=== PATIENT | male | born 2000 | race Two or more races ===

== ENCOUNTER 2019-12-17 20:58 | Emergency (ER) | payer OTHER ==
[~2019-12-17] VITALS: Ht 170.2 cm; Wt 65.9 kg
[2019-12-17] MEDS ORDERED: ISOVUE-370 76% 100ML VIAL As Ordered ONE (21:41)
[2019-12-17 22:01] LABS: BASO # 0.1 10^3/uL (0.0-0.2); BASO % 1.1 % (0.0-1.0); EOS # 0.1 10^3/uL (0.0-0.5); EOS % 1.9 % (0.0-3.0); HEMATOCRIT 47.9 % (42.0-52.0); LYMPH # 2.1 10^3/uL (1.5-5.0); LYMPH % 28.4 % (24.0-44.0); MEAN CORPUSCULAR HEMOGLOBIN 31.9 pg (27.0-33.0); MEAN CORPUSCULAR HGB CONC 33.4 g/dl (32.0-36.5); MEAN CORPUSCULAR VOLUME 95.6 fl (80.0-96.0); MONO # 0.7 10^3/uL (0.0-0.8); MONO % 8.8 % (0.0-5.0); NEUTROPHILS # 4.5 10^3/uL (1.5-8.5); NEUTROPHILS % 59.4 % (36.0-66.0); PLATELET COUNT, AUTOMATED 201 10^3/uL (150-450); RED BLOOD COUNT 5.01 10^6/uL (4.30-6.10); WHITE BLOOD COUNT 7.5 10^3/uL (4.0-10.0)
[2019-12-17 22:14] LABS: ALBUMIN 4.5 GM/DL (3.2-5.2); BILIRUBIN,DIRECT 0.1 MG/DL (0.0-0.2); BILIRUBIN,TOTAL 0.4 MG/DL (0.2-1.0); TOTAL PROTEIN 8.2 GM/DL (6.4-8.2)
--- NOTE | 2019-12-17 22:26 | REPVR ---
PROCEDURE INFORMATION: Exam: CT Abdomen And Pelvis With Contrast Exam date and time: 12/17/2019 9:43 PM Age: 19 years old Clinical indication: Abdominal pain; Localized; Right lower quadrant (rlq); Additional info: R/O infectious process TECHNIQUE: Imaging protocol: Computed tomography of the abdomen and pelvis with intravenous contrast. Radiation optimization: All CT scans at this facility use at least one of these dose optimization techniques: automated exposure control; mA and/or kV adjustment per patient size (includes targeted exams where dose is matched to clinical indication); or iterative reconstruction. Contrast material: ISOVUE 370; Contrast volume: 100 ml; Contrast route: INTRAVENOUS (IV); COMPARISON: No relevant prior studies available. FINDINGS: Lungs: The imaged portions of the lung bases are clear. The lungs were not fully imaged. Heart: No cardiomegaly or pericardial effusion. Diaphragm: Intact. Liver: Unremarkable. No liver lesion is identified. The contour of the liver is smooth. No hepatomegaly is noted. Gallbladder and bile ducts: No calcified gallstones are noted. No gallbladder wall thickening, pericholecystic fluid, or pericholecystic inflammatory changes are identified. No dilation of the bile ducts is noted. No calcified stones are seen in the common bile duct. Pancreas: Normal. No dilation of the main pancreatic duct is noted. There is no inflammatory fat stranding around the pancreas to suggest acute pancreatitis. Spleen: Normal. No splenomegaly is noted. Adrenals: Normal. No adrenal mass is noted. Kidneys and ureters: The kidneys are normal in appearance. No renal lesion is noted. No stones are noted in the kidneys or ureters. There is no hydronephrosis or hydroureter. There are no wedge-shaped areas of low attenuation in the kidneys to suggest pyelonephritis. There is no renal abscess or perinephric fluid collection. Stomach and bowel: The stomach and small bowel are unremarkable. There is no evidence for a bowel obstruction, diverticulosis, diverticulitis, colitis, perforated viscus, pneumatosis intestinalis, intussusception, or volvulus. Appendix: Normal. There is no evidence for appendicitis. Intraperitoneal space: No free air. No ascites. No asbcess. Retroperitoneal space: No fluid collection. No mass. Vasculature: The abdominal aorta is patent, normal in caliber, and there is no dissection. The iliac arteries, common femoral arteries, renal arteries, celiac artery, superior mesenteric artery, and inferior mesenteric artery are patent. The portal veins, splenic vein, superior mesenteric vein, inferior mesenteric vein, and renal veins are patent. Lymph nodes: No enlarged lymph nodes. Bladder: The distended urinary bladder is normal in appearance. No stones or masses are seen in the bladder. Reproductive: The prostate gland and seminal vesicles are unremarkable. Bones/joints: There is no fracture or dislocation. No suspicious osteolytic or osteoblastic lesion. There are no bony destructive changes. Soft tissues: Unremarkable. No hernia. No soft tissue fluid collection. IMPRESSION: No acute findings in the abdomen or pelvis. Normal appendix. Electronically signed by: Conor Aviles On 12/17/2019 22:25:37 PM
[2019-12-17] MEDS ORDERED: KETOROLAC 30 MG/ML 1ML VIAL IV ONE (22:45)
[2019-12-17 23:04] VITALS: BP 120/71
== END 2019-12-17 23:06 | disposition home or self-care (01) ==
LOC: M ED 20:58
DX: R10.9 Unspecified abdominal pain (principal)
CPT/HCPCS: 74177; 80047; 80076; 81001; 83690; 85025; 96374; 99284; J1885; Q9967

== ENCOUNTER 2021-02-28 15:38 | Emergency (ER) | payer OTHER ==
[~2021-02-28] VITALS: Ht 170.2 cm; Wt 68.6 kg
[2021-02-28 16:43] LABS: BASO # 0.1 10^3/uL (0.0-0.2); BASO % 0.9 % (0.0-1.0); EOS # 0.1 10^3/uL (0.0-0.5); EOS % 0.9 % (0.0-3.0); HEMATOCRIT 46.5 % (42.0-52.0); HEMOGLOBIN 15.8 g/dl (13.5-17.5); LYMPH # 3.1 10^3/uL (1.5-5.0); LYMPH % 32.1 % (24.0-44.0); MEAN CORPUSCULAR HEMOGLOBIN 31.6 pg (27.0-33.0); MONO # 0.7 10^3/uL (0.0-0.8); MONO % 7.1 % (2.0-8.0); NEUTROPHILS # 5.7 10^3/uL (1.5-8.5); NEUTROPHILS % 58.7 % (36.0-66.0); PLATELET COUNT, AUTOMATED 234 10^3/uL (150-450); WHITE BLOOD COUNT 9.7 10^3/uL (4.0-10.0)
--- NOTE | 2021-02-28 16:57 | REP ---
INDICATION: right flank pain. COMPARISON: 12/17/2019 TECHNIQUE: 3 mm axial images were obtained through the abdomen and pelvis without contrast. Sagittal and coronal reconstructions were obtained from the original data set. FINDINGS: No significant abnormality is identified at the lung bases. The liver, spleen and pancreas appear normal. No stones seen in the gallbladder and there is no thickening of the gallbladder wall. The adrenal glands appear normal bilaterally. No stones, masses or hydronephrosis seen in either kidney. No stones are noted in the minimally filled urinary bladder. A moderate amount of fecal debris is seen in the right colon with the remainder of the colon having only a small amount of fecal debris. Scattered uncomplicated diverticula are present in the sigmoid with no evidence of diverticulitis. There also is no evidence of appendicitis. No osseous abnormality is identified. IMPRESSION: Unremarkable examination. <Electronically signed by Alvaro Baets > 02/28/21 [id number]
--- OUTSIDE RECORDS SUMMARY | 2021-02-28 16:58 | CCD ---
Author Author [facility] Organization [facility] Address Unknown Phone Unavailable Care Team Providers Care Banquet Houseperson Name Role Phone NO, PCP Unavailable Unavailable TROYEfra GAMBOA MD Unavailable Unavailable TROYEfra MD Unavailable Unavailable TROY, Efra COREA MD Unavailable Unavailable TROY, Efra COREA MD Unavailable Unavailable TROY, Efra COREA MD Unavailable Unavailable TROY, Efra OCREA MD Unavailable Unavailable TROY, Efra COREA MD Unavailable Unavailable TROY, Efra COREA MD Unavailable Unavailable TROY, Efra COREA MD Unavailable Unavailable TROY, Efra COREA MD Unavailable Unavailable TROY, Efra COREA MD Unavailable Unavailable TROY, Efra COREA MD Unavailable Unavailable TROY, Efra COREA MD Unavailable Unavailable TROY, Efra COREA MD Unavailable Unavailable TROY, Efra COREA MD Unavailable Unavailable TROY, Efra COREA MD Unavailable Unavailable TROY, Efra COREA MD Unavailable Unavailable TROY, Efra COREA MD Unavailable Unavailable TROY, Efra COREA MD Unavailable Unavailable TROY, L NAHOMY TINAJERO Unavailable Unavailable Makenna TAYLOR MD Unavailable Unavailable Makenna TAYLOR MD Unavailable Unavailable Makenna TAYLOR MD Unavailable Unavailable Makenna TAYLOR MD Unavailable Unavailable Makenna TAYLOR MD Unavailable Unavailable Makenna TAYLOR MD Unavailable Unavailable Makenna TAYLOR MD Unavailable Unavailable CHANLIMakenna MCDONOUGH MD Unavailable Unavailable CHANLIMakenna MCDONOUGH MD Unavailable Unavailable CHANLIMakenna MCDONOUGH MD Unavailable Unavailable CHANLIMakenna MCDONOUGH MD Unavailable Unavailable Re-disclosure Warning The records that you are about to access may contain information from federally-assisted alcohol or drug abuse programs. If such information is present, then the following federally mandated warning applies: This information has been disclosed to you from records protected by federal confidentiality rules (42 CFR part 2). The federal rules prohibit you from making any further disclosure of this information unless further disclosure is expressly permitted by the written consent of the person to whom it pertains or as otherwise permitted by 42 CFR part 2. A general authorization for the release of medical or other information is NOT sufficient for this purpose. The Federal rules restrict any use of the information to criminally investigate or prosecute any alcohol or drug abuse patient.The records that you are about to access may contain highly sensitive health information, the redisclosure of which is protected by Article 27-F of the [facility] Public Health law. If you continue you may have access to information: Regarding HIV / AIDS; Provided by facilities licensed or operated by the [facility] Office of Mental Health; or Provided by the [facility] Office for People With Developmental Disabilities. If such information is present, then the following [facility] mandated warning applies: This information has been disclosed to you from confidential records which are protected by state law. State law prohibits you from making any further disclosure of this information without the specific written consent of the person to whom it pertains, or as otherwise permitted by law. Any unauthorized further disclosure in violation of state law may result in a fine or penitentiary sentence or both. A general authorization for the release of medical or other information is NOT sufficient authorization for further disc losure. Encounters Encounter Providers Location Date Indications Data Source(s ) Emergency Attender: NAHOMY SIMMONS MDConsultant: PCP NO 02/03/2021 11:28:00 AM EDT - 02/03/2021 02:17:00 PM EDT [facility] Patient discharged. Emergency Attender: DEON TAYLOR MDConsultant: PCP NO 01/20/2021 05:11:00 PM EDT - 01/20/2021 07:00:00 PM EDT [facility] Patient discharged. Immunizations Vaccine Date Status Description Data Source(s) COVID-19 VACC, MRNA(PFIZER)/PF 12/12/2020 12:00:00 AM EDT completed [facility] COVID-19 VACC, MRNA(PFIZER)/PF 11/22/2020 12:00:00 AM EDT completed [facility] INFLUENZA VIRUS VACCINE QUADRIVAL (6 MOS AND UP)/PF 01/23/2020 12:00:00 AM EDT completed [facility] Medications No Information Insurance Providers Payer name Policy type / Coverage type Policy ID Covered democrat ID Covered democrat's relationship to miranda Policy Miranda Plan Information [facility] [id number] 18 [id number] [facility] [id number] SELF PAY SP Problems, Conditions, and Diagnoses Code Display Name Description Problem Type Effective Dates Data Source(s) R1031 Right lower quadrant pain Right lower quadrant pain Di agnosis 02/03/2021 11:28:00 AM EDT [facility] Z5320 Procedure and treatment not carried out because of patient's decision for unspecified reasons Procedure and treatment not carried out because of patient's decision for unspecified reasons Diagnosis 01/20/2021 05:11:00 PM EDT [facility] R110 Nausea Nausea Diagnosis 01/20/2021 05:11:00 PM ED T [facility] R1011 Right upper quadrant pain Right upper quadrant pain Di agnosis 01/20/2021 05:11:00 PM EDT [facility] Surgeries/Procedures No Information Results ID Date Data Source [id number] 02/03/2021 11:28:00 AM EDT [facility] 1 OrderSheet [facility] Emergency Department [address] [place] [address] Phone #: ext- [phone] 02/03/2021 11:23 Patient: YO ZUÑIGA Sex: M : 2000 Age: 21yWEIGHT:68.0 kg (S) HEIGHT:67 inches (S) BMI:23.5ALLERGIES: No Known Drug AllergyCHIEF COMPLAINT: abdominal painDIAGNOSIS: Abdominal painLAB ORDERSOrder Description Priority Entered Acknowledged InitialedUrinalysis (Clean STAT 11:37 02/03/2021 11:38 Daniel Reynoso) Milli Madden RN; R.NHarris Verbal order per; Porfirio Roper-CCBC w Diff STAT 12:13 02/03/2021 Ack'd: 12:15 Wilt, 13:05 Nahomy Wilson ED, MD; Sherron R.NHarris Morel, Katy [id number] STAT 12:13 02/03/2021 Ack'd: 12:15 Wilt, 13:05 Nahomy Wilson ED, MD; Sherron R.NHarris [employer], Corrupt Lace [id number] Acid STAT 12:13 02/03/2021 Ack'd: 12:15 Wilt, 13:05 Nahomy Wilson ED, MD; Sherron R.N. Tech, Cor[employer] Lace [id number] STAT 12:13 02/03/2021 Ack'd: 12:15 Wilt, 13:05 Nahomy Wilson ED, MD; Sherron Oliveira.NHarris [employer], Corrupt Lace [id number] STUDY ORDERSOrder Description Priority Entered Acknowledged InitialedMEDICATION/IV/DRIP/FLUID ORDERSOrder Description Priority Entered Acknowledged InitialedGENERAL ORDERSOrder Description Priority Entered Acknowledged Initialed[Electronically signed by Shelby Beltran R.N. (14:17 02/03/2021)][Electronically signed by Nahomy Simmons MD (06:44 02/04/2021)][Electronically locked by Shelby Beltran R.N. (14:17 02/03/2021)] Name Value Range Interpretation Code Description Data Sonam rce(s) Supporting Document(s) ID Date Data Source [id number] 02/03/2021 11:28:00 AM EDT [facility] 1 Medication Reconciliation Report [facility] Emergency Department [address] [place] [address] Phone #: ext- [phone] 02/03/2021 11:23 Patient: YO ZUÑIGA Sex: M : 2000 Age: 21yWeight: 68.0 kgHeight/Length: 67 in.BMI: 23.5ALLERGIES: No Known Drug AllergyThe patient's Home Medications are listed below:NONE.The source(s) of the original Home Medication information:Not obtained.The following Medications were given to the patient in the Emergency Department:None.The following Medications were prescribed to the patient:None. Name Value Range Interpretation Code Description Data Sonam rce(s) Supporting Document(s) ID Date Data Source [id number] 02/03/2021 11:28:00 AM EDT [place] [address] Medication Administration Record [facility] Emergency Department [address] [place] [address] Phone #: ext- [phone] 02/03/2021 11:23 Patient: YO ZUÑIGA Sex: M : 2000 Age: 21yWeight: 68.0 kgHeight/Length: 67 inBMI: 23.5ALLERGIES: No Known Drug AllergyDate/Time Medication Administered Medication Ordered Name Value Range Interpretation Code Description Data Sonam rce(s) Supporting Document(s) ID Date Data Source [id number] 02/03/2021 11:28:00 AM EDT [facility] 1 General Instructions [facility] Emergency Department [address] [place] [address] Phone #: pzy- [phone] 02/03/2021 11:23 Patient: YO ZUÑIGA Sex: M : 2000 Age: 21yChronic right upper quadrant abdominal pain.INSTRUCTIONSDrink plenty of fluids.(Follow up with your primary care physician. Return if worse or any new symptoms. You may taketylenol for pain. Avoid spicy and greasy foods.).Warnings: Further evaluation is necessary.GENERAL WARNINGS: Return or contact your physician immediately if your condition worsens orchanges unexpectedly, if not improving as expected, or if other problems arise.Your Current Medications: .No home medication.Follow-up:Follow up with your doctor in one week even if well. Call for an appointment. Reason for referral:evaluation. Summary of care provided to patient via paper.Understanding of the discharge instructions verbalized by patient. ADDITIONAL INFORMATIONUnknown Causes of Abdominal Pain (Male)Based on your visit today, the exact cause of your abdominal pain is not clear. Your exam and testsdon't suggest a dangerous cause at this time. However, the signs of a serious problem may takemore time to appear. Although your evaluation was reassuring today, sometimes early in the courseof many conditions, exam and lab tests can appear normal. Therefore, it is important for you to watchfor any new symptoms or worsening of your condition.It may not be obvious what caused your symptoms. Pay attention to things that do seem to makeyour symptoms worse or better and discuss this with your doctor when you follow up.The evaluation of abdominal pain in the emergency department may only require an exam by thedoctor or it may include blood, urine or imaging studies, depending on many factors. Sometimesexams and tests can identify a cause but in many cases, a clear cause is not found. Further testing at [facility] Emergency Department [address] [place] [address] Phone #: ext- [phone] 02/03/2021 11:23 Patient: YO ZUÑIGA Sex: Jose : 2000 Age: 21yfollow up visits may help to suggest a clear diagnosis.Home care Rest as much as you can until your next exam. Try to avoid any medicines (unless otherwise directed by your doctor), foods, activities, or other factors that may have contributed to your symptoms. Try to eat foods that you know that you have tolerated well in the past. Certain diets may be recommended for some conditions that cause abdominal pain. However, since the cause of your symptoms may not be clear, discuss your diet more with your healthcare provider or specialist for further recommendations. If you have diarrhea, it may help to avoid dairy (lactose) for the time being. A low fat, low fiber diet can also help. Eating several small meals per day as opposed to 2 or 3 larger meals may help. Avoid dehydration. Make sure to drink plenty of water. Other options include broth, soup, gelatin, sports drinks, or other clear liquids. Watch closely for anything that may make your symptoms worse or better. Pay close attention to symptoms below that may mean your condition is getting worse.Follow-up careFollow up with your healthcare provider if your symptoms are not improving, or as advised. In somecases, you may need more testing.When to seek medical adviceCall your healthcare provider right away if any of these occur: Pain is becoming worse You are unable to take your medicines or can't keep water down due to excessive vomiting Swelling of the abdomen Fever of 100.4F (38C) or higher, or as directed by your healthcare provider Blood in vomit or bowel movements (dark red or black color) Jaundice (yellow color of eyes and skin) 3 General Instructions [facility] Emergency Department [address] [place] [address] Phone #: ext- [phone] 02/03/2021 11:23 --- Patient: YO ZUÑIGA Sex: M : 2000 Age: 21y New onset of weakness, dizziness or fainting New onset of chest, arm, back, neck or jaw pain [id number] [employer]. [address] [place] [address]. All rights reserved. This information is not intended as asubstitute for professional medical care. Always follow your healthcare professional's instructions. You have been given the following additional information: Unknown Causes of Abdominal Pain (Male)(Electronically signed by Nahomy Simmons MD 02/04/2021 06:44) Name Value Range Interpretation Code Description Data Sonam rce(s) Supporting Document(s) ID Date Data Source [id number] 02/03/2021 11:28:00 AM EDT [facility] 1 Clinical Report - Nurses [facility] Emergency Department [address] [place] [address] Phone #: ext- [phone] 02/03/2021 11:23 Patient: YO ZUÑIGA Sex: M : 2000 Age: 21yTRIAGEArrived by private vehicle. Historian: patient. Accompanied by friend. ( has had abd pain right lowerquad for 1 month which get worse on some days and this is one of those days, was seen here and leftAMA).Acuity: LEVEL 3.Chief Complaint: ABDOMINAL PAIN.Alert. No acute distress.Onset. (1 month). He has had abdominal pain. The pain is described as located in the RLQ.Treatment SUPERVISOR COMMUNICATIONS AND SIGNALS:None.SEPSIS SCREEN: SIRS SCREEN NEGATIVE. SEPSIS SCREEN NEGATIVE. No suspected or confirmedsigns of infection present. --11:39 02/03/21 Shelby Beltran R.N.11:35 02/03/21. BP: 163/78. MAP: 106. HR: 77. RR: 16. O2 saturation: 98%. Temp: 98.5 F. Pain levelnow: 09/27. --11:39 02/03/21 Shelby Beltran R.N. Weight: 68 kg stated. Height/Length: 72 inches Per Patient. BMI: 20.3. --11:35 02/03/21 Shelby Beltran R.N..Weight: 68 kg stated. Height/Length: 67 inches Per Patient. BMI: 23.5. --11:35 02/03/21 Shelby Beltran R.N.MedicationsNone. --11:37 02/03/21 Shelby Beltran R.N.AllergiesNo Known Drug Allergy. --11:37 02/03/21 Shelby Beltran R.N.PROBLEMS:Arrhythmia.Abdominal Pain.Atypical Chest Pain. --11:37 02/03/21 Shelby Beltran R.N.ADDITIONAL SURGERIES:no known surgeries.HistoryPAST MEDICAL HX: Immunizations: up-to-date. 2 Clinical Report - Nurses [facility] Emergency Department [address] [place] [address] Phone #: ext- [phone] 02/03/2021 11:23 Patient: YO ZUÑIGA Sex: M : 2000 Age: 21y SOCIAL HX: Never smoker. Regular alcohol use. No drug use. No recent travel. No known contact with a sick individual. He was offered HIV testing but declined and hepatitis C testing but declined. He has not traveled outside the [place] Infectious disease exposure: No infectious disease exposure. The patient was not exposed to Coronavirus. (has had vaccine for covid). Patient is not a known carrier of tuberculosis, hepatitis, HIV, MRSA or VRE. Patient is not a known carrier of CRE. SELF HARM ASSESSMENT: Self harm assessment was performed. The patient answered "no" to the question(s) "Have you recently felt down, depressed, or hopeless?" and "Do you have thoughts of harming or killing yourself?". ABUSE ASSESSMENT: Abuse assessment. Abuse denied. No suspicion of abuse. No report of abuse. NUTRITIONAL RISK ASSESSMENT: The nutritional risk assessment revealed no deficiencies. FUNCTIONAL ASSESSMENT: Functional assessment: no impairments noted. LEARNING NEEDS ASSESSMENT: The learning needs assessment revealed no barriers. FALL RISK ASSESSMENT: Fall risk assessment completed. No risk factors identified. SKIN INTEGRITY ASSESSMENT: Skin integrity risk assessment completed. No skin integrity risk identified. --11:39 02/03/21 Shelby Beltran R.N. Interventions Identification band on patient. To treatment room. --11:39 02/03/21 Shelby Beltran R.N.PHYSICAL ASSESSMENTAmbulatory to room.GENERAL / NEURO / PSYCH: Alert. Oriented X 4. Appears in no acute distress.HEENT: Mucous membranes are pink.RESPIRATORY: Respirations not labored. Breath sounds within normal limits.CVS: Normal sinus rhythm noted. Capillary refill less than 2 seconds.GI / : Abdomen soft and nontender. Bowel sounds within normal limits. No abdominal distention ordiarrhe a. No nausea noted. No emesis noted. ( No pain with palpation of abdomen. Last BM thismorning, states was normal for him.).SKIN: Skin is warm and dry. --11:43 02/03/21 Sherron Reynoso R.N.NURSING PROGRESS NOTESPatient gowned. Reassurance given. Two patient identifiers checked. Call light placed in reach. Siderails up x 2. Bed placed in lowest position. Brakes of bed on. Patient ready for evaluation. --11: Shelby Beltran R.N. 12:13 02/03/21. BP: 139/78. HR: 70. RR: 16. O2 saturation: 100%. --12:13 02/03/21 [place] environmental [employer] worker, 3 Clinical Report - Nurses [facility] Emergency Department [address] [place] [address] Phone #: ext- [phone] 02/03/2021 11:23 Patient: YO ZUÑIGA Sex: M : 2000 Age: 21y HALEY Burns1 13:06 02/03/21. BP: 149/61. HR: 62. RR: 16. O2 saturation: 100%. --13:06 02/03/21 [facility] Katy [employer] Tech1 late entry - 12:52 02/03/21. ( started calling amb for transfer to [facility], [facility] unable to take pt.). --13:54 02/03/21 Milli Madden RN Charted On Wrong Patient --13:57 02/03/21 Milli Madden RN 12:55 02/03/21. ( [facility] called and they are unable to take transport). --13:54 02/03/21 Milli Madden RN Charted On Wrong Patient --13:57 02/03/21 Milli Madden RN 12:57 02/03/21. ( [facility] called and will call back in 30 min with estimation on crew.). --13:56 02/03/21 Milli Madden RN Correction --13:58 02/03/21 Milli Madden RN 13:29 02/03/21. ( [facility] called and they will be here in 30 min.). --13:56 02/03/21 Milli Madden RN Charted On Wrong Patient --13:58 02/03/21 Milli Madden RN 14:05 02/03/21. BP: 140/74. HR: 62. RR: 16. O2 saturation: 99%. --14:05 02/03/21 [facility] Katy Tech1.DISPOSITION / DISCHARGE 14:12 02/03/21. BP: 131/84. HR: 71. RR: 17. O2 saturation: 98%. Temp: 98.2 F. Pain level now 06/27. --14:13 02/03/21 [facility] [employer], Katy Adonit1 Condition at departure: unchanged. No learning barriers present. Discharge instructions provided and reviewed with the patient. Patient verbalized understanding. Written instructions provided in Turkmen. The patient was discharged home and accompanied by casing trimmer. He left ambulatory and via private vehicle. Washing Tub Operator driving. --14:17 02/03/21 Shelby Beltran R.N. Departure time: 14:02/03/2021. --14:17 02/03/21 Shelby Beltran R.N.Locked/Released at 02/03/2021 14:17 by Shelby Beltran R.N. Name Value Range Interpretation Code Description Data Sonam rce(s) Supporting Document(s) ID Date Data Source [id number] 02/03/2021 11:28:00 AM EDT [facility] 1 Clinical Report - Physicians/Mid Levels [facility] Emergency Department [address] [place] [address] Phone #: ext- [phone] 02/03/2021 11:23 Patient: YO ZUÑIGA Sex: M : 2000 Age: 21y Arrived- By private vehicle. Historian- patient. Disposition decision: 14:08 02/03/2021.HISTORY OF PRESENT ILLNESS Chief Complaint: ABDOMINAL PAIN. It is described as cramping. This started 1 months and is now gone. At its maximum, severity described as mild. When seen in the E.D., it was almost gone. Modifying factors- worsened by food. Not relieved by anything. No nausea, loss of appetite, vomiting or diarrhea. (has had abd pain right lower quad for 1 month which get worse on some days and this is one of those days, was seen here and left AMA). No recent travel. Similar symptoms previously. Patient has had similar symptoms many times. Recent medical care: The patient was seen recently in the emergency department.REVIEW OF SYSTEMSNo constipation, black stools, hematemesis or difficulty with urination or urination. No pain with ur ination,urinary frequency or urinary frequency, bloody stools or fever. No headache, sore throat or throat orblurred vision. No chest pain or pain, difficulty breathing or cough. No joint pain or pain, skin rash or rashor chills. No back pain or pain, chills, fever or double vision. No ear pain, nasal congestion, cough,difficulty breathing or diarrhea. No vomiting, hematuria, neck pain, headache or seizure. No easybruising. The patient has had abdominal pain but not had weight loss or no pain on weight bearing.PAST HISTORYSee nurses notes. Problems: Abdominal Pain. Additional Surgeries: no known surgeries. Medications: None. Allergies: No Known Drug Allergy.SOCIAL HISTORYNo drug use.ADDITIONAL NOTES 2 Clinical Report - Physicians/Mid Levels [facility] Emergency Department [address] [place] [address] Phone #: ext- [phone] 02/03/2021 11:23 Patient: YO ZUÑIGA Sex: M : 2000 Age: 21y The nursing notes have been reviewed.PHYSICAL EXAMVital Signs: 02/03/2021 13:17 Pain level now: 08/27.02/03/2021 13:06 BP: 149/61. MAP: 90. HR: 62. RR: 16. O2 saturation: 100%.02/03/2021 12:13 BP: 139/78. MAP: 98. HR: 70. RR: 16. O2 saturation: 100%.02/03/2021 11:35 BP: 163/78. MAP: 106. HR: 77. RR: 16. O2 saturation: 98%. Temp: 98.5 F. Pain levelnow: 6/10.Appearance: Alert. Oriented X3. No acute distress.Eyes: Pupils equal, round and reactive to light. Eyes normal inspection.ENT: Ears normal. Nose normal. Pharynx normal.Neck: Normal inspection. Neck supple.CVS: Normal heart rate and rhythm. Heart sounds normal. Pulses normal.Respiratory: No respiratory distress. Painless inspiration. Breath sounds normal. Chest nontender.Abdomen: Soft and nontender. Bowel sounds normal.Back: Normal inspection. No CVA tenderness.Skin: Skin warm and dry. Normal skin color. No rash. Normal skin turgor.Extremities: Extremities exhibit normal ROM. No lower extremity edema.Neuro: Oriented X 3. No motor deficit. No sensory deficit.LABS, X-RAYS, AND EKGLaboratory Tests: CBC w Diff: (NILSON: 02/03/2021 12:32) ( MsgRcvd 02/03/2021 12:42) Final r esults Test Result Flag Units (Reference) CBC W/AUTOMATED DIFF COMPLETE BLOOD COUNT WBC 5.2 10/uL (4.2 - 11.0) RBC 4.88 10/uL (4.50 - 6.30) HEMOGLOBIN 15.6 g/dL (14.0 - 16.0) HEMATOCRIT 45.5 % (41.0 - 51.0) MCV 93.2 fL (80.0 - 94.0) MCH 32.0 pg (27.0 - 34.0) MCHC 34.3 g/dL (31.0 - 36.0) RDW 11.9 % (11.5 - 14.8) PLATELETS 225 10/uL (150 - 450) MPV 10.6 H fL (7.4 - 10.4) NEUT 62.6 % (37.0 - 80.0) LYMPH 25.1 % (25.0 - 40.0) MONO 7.9 % (3.0 - 8.0) EOS 2.1 % (0.0 - 7.0) BASO 1.5 % (0.0 - 2.0) %IG 0.8 H % (0.0 - 0.0) %NRBC 0.0 % (0.0 - 0.0) #NEUT 3.24 10/uL (2.00 - 6.90) #LYMPH 1.30 10/uL (0.60 - 3.40) #MONO 0.41 10/uL (0.00 - 0.90) #EOS 0.11 10/uL (0.00 - 0.70) #BASO 0.08 10/uL (0.00 - 0.20) #IG 0.04 10/uL (0.00 - 0.10) #NRBC 0.00 10/uL (0.00 - 0.00) MANUAL DIFF NOT INDICATED 3 Clinical Report - Physicians/Mid Levels [facility] Emergency Department [address] [place] [address] Phone #: ext- [phone] 02/03/2021 11:23 Patient: YO ZUÑIGA Sex: M : 2000 Age: 21y RBC MORPH NOT INDICATEDCMP: (NILSON: 02/03/2021 12:32) ( MsgRcvd 02/03/2021 13:02) Final results Test Result Flag Units (Reference) COMPREHENSIVE METABOLIC PANEL COMPREHENSIVE METABOLIC PANEL SODIUM 139 mEq/L (134 - 153) POTASSIUM 3.9 mEq/L (3.6 - 5.0) CHLORIDE 104 mEq/L (98 - 107) CO2 25 MEQ/L (22 - 30) GLUCOSE 101 H MG/DL (70 - 99) BUN 9 MG/DL (7 - 21) CREATININE 0.7 MG/DL (0.7 - 1.5) BUN/CREAT 13 (8 - 27) TOTAL PROTEIN 7.6 G/DL (6.3 - 8.2) ALBUMIN 5.1 H G/DL (3.9 - 5.0) GLOBULIN 2.5 GM/DL (2.4 - 3.2) A/G RATIO 2.0 (0.8 - 2.0) CALCIU M 10.2 MG/DL (8.4 - 10.2) TOTAL BILI <0.7 MG/DL (0.2 - 1.3) ALKALINE PHOS 74 U/L (38 - 126) SGOT/AST 22 U/L (5 - 40) SGPT/ALT 26 U/L (7 - 56) ANION GAP 10.0 mmol/L (8.0 - 16.0) AGE 21 yrs NON-AA GFR >60 mL/min AFR AMER GFR >60 mL/min Male GFR Interprentation 20-49 yrs >60 mL/min Crbgaj57-19 yrs >56 mL/min Normal 60-69 yrs >49 mL/min Normal 70-79yrs>42 mL/min Normal 80 and above >35 mL/min Normal Female GFRInterpretation 20-39 yrs > 60 mL/min Normal 40-49 yrs >58 mL/minNormal 50-59 yrs >51 mL/min Normal 60-69 yrs >45 mL/min Ibekpw03-87 yrs >39 mL/min Normal 80 and above >32 mL/min NormalLactic Acid: (NILSON: 02/03/2021 12:32) ( [facility] [place]42) Final results Test Result Flag Units (Reference) LACTIC ACID 1.7 MMOL/L (0.2 - 2.2)Lipase: (NILSON: 02/03/2021 12:32) ( [facility] [place] 02/03/[place] 13:01) Final results Test Result Flag Units (Reference) LIPASE 16 U/L (13 - 60)Urinalysis: (NILSON: 02/03/2021 11:35) ( [facility] [place] 02/03/2021 11:50) Final results Test Result Flag Units (Reference) URINALYSIS URINALYSIS SOURCE R COLOR yellow (NORMAL: Yello CLARITY clear (NORMAL: Clear SPEC GRAVITY 1.010 (1.001 - 1.030 pH 8 (5 - 9) GLUCOSE NORM (NORMAL: Negat BILIRUBIN NEG (NORMAL: Negat KETONE NEG (NORMAL: Negat PROTEIN NEG (NORMAL: Negat 4 Clinical Report - Physicians/Mid Levels [facility] Emergency Department [address] [place] [address] Phone #: ext- [phone] 02/03/2021 11:23 Patient: YO ZUÑIGA Sex: M : 2000 Age: 21y NITRITE NEG (NORMAL: Negat BLOOD NEG (NORMAL: Negat LEUK EST NEG (NORMAL: Negat UROBILINOGEN NOR (less than 1.0 MICROSCOPIC Not Indicate.PROGRESS AND PROCEDURESCourse of Care: pt presents with chronic abd pain. his exam is benign. labs nl. pt encouraged to f/uwith pcp. he was encouraged to take tylenol for pain. Patient/family counseled. Disposition: Discharged. Condition: good and stable.CLINICAL IMPRESSION Chronic right upper quadrant abdominal pain.INSTRUCTIONS Drink plenty of fluids. (Follow up with your primary care physician. Return if worse or any new symptoms. You may take tylenol for pain. Avoid spicy and greasy foods.). Warnings: Further evaluation is necessary. GENERAL WARNINGS: Return or contact your physician immediately if your condition worsens or changes unexpectedly, if not improving as expected, or if other problems arise. Your Current Medications: . No home medication. Follow-up: Follow up with your doctor in one week even if well. Call for an appointment. Reason for referral: evaluation. Summary of care provided to patient via paper. Understanding of the discharge instructions verbalized by patient.(Electronically signed by Nahomy Simmons MD 02/04/2021 06:44) 5Clinical Report - Physicians/Mid Levels [facility] Emergency Department [address] [place] [address] Phone #: ext- [phone] 02/03/2021 11:23 Patient: YO ZUÑIGA Sex: M : 2000 Age: 21y Name Value Range Interpretation Code Description Data Sonam rce(s) Supporting Document(s) ID Date Data Source [id number] 02/03/2021 01:02:00 PM EDT [facility] Name Value Range Interpretation Code Description Data Sonam rce(s) Supporting Document(s) COMPREHENSIVE METABOLIC PANEL [facility] COMPREHENSIVE METABOLIC PANEL Sodium [Moles/volume] in Serum or Plasma 139 mEq/L 134 - 153 [facility] Potassium [Moles/volume] in Serum or Plasma 3.9 mEq/L 3.6 - 5.0 [facility] Chloride [Moles/volume] in Serum or Plasma 104 mEq/L 98 - 107 [facility] Carbon dioxide, total [Moles/volume] in Serum or Plasma 25 MEQ/L 22 - 30 [facility] Glucose [Mass/volume] in Serum or Plasma 101 MG/DL 70 - 99 H [facility] BUN 9 MG/DL 7 - 21 [facility] Creatinine [Mass/volume] in Serum or Plasma 0.7 MG/DL 0.7 - 1.5 [facility] BUN/CREAT 13 8 - 27 [facility] Protein [Mass/volume] in Serum or Plasma 7.6 G/DL 6.3 - 8.2 [facility] Albumin [Mass/volume] in Serum or Plasma 5.1 G/DL 3.9 - 5.0 H [facility] Globulin [Mass/volume] in Serum by calculation 2.5 GM/DL 2.4 - 3.2 [facility] A/G RATIO 2.0 0.8 - 2.0 [facility] Calcium [Mass/volume] in Serum or Plasma 10.2 MG/DL 8.4 - 10.2 [facility] Bilirubin.total [Mass/volume] in Serum or Plasma <0.7 MG/DL 0.2 - 1.3 [facility] Alkaline phosphatase [Enzymatic activity/volume] in Serum or Plasma 74 U/L 38 - 126 [facility] Aspartate aminotransferase [Enzymatic activity/volume] in Serum or Plasma 22 U/L 5 - 40 [facility] Alanine aminotransferase [Enzymatic activity/volume] in Seru m or Plasma 26 U/L 7 - 56 [facility] Anion gap 3 in Serum or Plasma 10.0 mmol/L 8.0 - 16.0 [facility] AGE 21 yrs [facility] al NON-AA GFR >60 mL/min [facility] ital AFR AMER GFR >60 mL/min [facility] Male GFR In terprentation 20-49 yrs >60 mL/min Normal 50-59 yrs >56 mL/min Normal 60-69 yrs >49 mL/min Normal 70-79yrs >42 mL/min Normal 80 and above >35 mL/min Normal Female GFR Interpretation 20-39 yrs >60 mL/min Normal 40-49 yrs >58 mL/min Normal 50-59 yrs >51 mL/min Normal 60-69 yrs >45 mL/min Normal 70-79 yrs >39 mL/min Normal 80 and above >32 mL/min Normal ID Date Data Source [id number] 02/03/2021 01:00:00 PM EDT [facility] Name Value Range Interpretation Code Description Data Sonam rce(s) Supporting Document(s) Lipase [Enzymatic activity/volume] in Serum or Plasma 16 U/L 13 - 60 [facility] ID Date Data Source [id number] 02/03/2021 12:42:00 PM EDT [facility] Name Value Range Interpretation Code Description Data Sonam rce(s) Supporting Document(s) CBC W/AUTOMATED DIFF [facility] COMPLETE BLOOD COUNT Leukocytes [#/volume] in Blood by Automated count 5.2 10^3/uL 4.2 - 1 1.0 [facility] Erythrocytes [#/volume] in Blood by Automated count 4.88 10^6/uL 4. 50 - 6.30 [facility] Hemoglobin [Mass/volume] in Blood 15.6 g/dL 14.0 - 16.0 [facility] Hematocrit [Volume Fraction] of Blood by Automated count 45.5 % 4 1.0 - 51.0 [facility] Erythrocyte mean corpuscular volume [Entitic volume] by Auto mated count 93.2 fL 80.0 - 94.0 [facility] Erythrocyte mean corpuscular hemoglobin [Entitic mass] by Automated count 32.0 pg 27.0 - 34.0 [facility] Erythrocyte mean corpuscular hemoglobin concentration [Mass/volume] by Automated count 34.3 g/dL 31.0 - 36.0 [facility] Erythrocyte distribution width [Ratio] by Automated count 11.9 % 11.5 - 14.8 [facility] Platelets [#/volume] in Blood by Automated count 225 10^3/uL 150 - 45 0 [facility] Platelet mean volume [Entitic volume] in Blood by Automated count 10.6 fL 7.4 - 10.4 H [facility] Neutrophils/100 leukocytes in Blood by Automated count 62.6 % 37. 0 - 80.0 [facility] Lymphocytes/100 leukocytes in Blood by Manual count 25.1 % 25.0 - 40.0 [facility] Monocytes/100 leukocytes in Blood by Automated count 7.9 % 3.0 - 8.0 [facility] Eosinophils/100 leukocytes in Blood by Automated count 2.1 % 0.0 - 7.0 [facility] Basophils/100 leukocytes in Blood by Automated count 1.5 % 0.0 - 2.0 [facility] %IG 0.8 % 0.0 - 0.0 H [facility] %NRBC 0.0 % 0.0 - 0.0 [facility] [#/volume] in Blood by Automated count 3.24 10^3/uL 2.00 - 6.90 [facility] Lymphocytes [#/volume] in Blood by Automated count 1.30 10^3/uL 0.60 - 3.40 [facility] Monocytes [#/volume] in Blood by Automated count 0.41 10^3/uL 0.00 - 0.90 [facility] Eosinophils [#/volume] in Blood by Automated count 0.11 10^3/uL 0.00 - 0.70 [facility] Basophils [#/volume] in Blood by Automated count 0.08 10^3/uL 0.00 - 0.20 [facility] #IG 0.04 10^3/uL 0.00 - 0.10 [facility] #NRBC 0.00 10^3/uL 0.00 - 0.00 [facility] MANUAL DIFF NOT INDICATED [facility] RBC MORPH NOT INDICATED [facility] ID Date Data Source [id number] 02/03/2021 12:42:00 PM EDT [facility] Name Value Range Interpretation Code Description Data Sonam rce(s) Supporting Document(s) Lactate [Moles/volume] in Serum or Plasma 1.7 MMOL/L 0.2 - 2.2 [facility] ID Date Data Source [id number] 02/03/2021 11:50:00 AM EDT [facility] Name Value Range Interpretation Code Description Data Sonam rce(s) Supporting Document(s) [facility] R [facility] COLOR yellow NORMAL: Yellow [facility] CLARITY clear NORMAL: Clear [facility] Specific gravity of Urine by Test strip 1.010 1.001 - 1.030 [facility] pH 8 5 - 9 [facility] Glucose [Mass/volume] in Urine by Test strip NORM NORMAL: Negat [facility] Bilirubin.total [Presence] in Urine by Test strip NEG NORMAL: Negative [facility] Ketones [Presence] in Urine by Test strip NEG NORMAL: Negative [facility] Protein [Mass/volume] in Urine by Test strip NEG NORMAL: Negat [facility] Nitrite [Presence] in Urine by Test strip NEG NORMAL: Negative [facility] BLOOD NEG NORMAL: Negative [facility] LEUK EST NEG NORMAL: Negative [facility] Urobilinogen [Mass/volume] in Urine by Test strip NOR less nahid n 1.0 mg/dL [facility] MICROSCOPIC Not Indicate [facility] ID Date Data Source [id number] 01/20/2021 05:11:00 PM EDT [facility] 1 OrderSheet [facility] Emergency Department [address] [place] [address] Phone #: ext- [phone] 01/20/2021 17:02 Patient: YO MORALES Sex: M : 2000 Age: 20yWEIGHT:56.6 kg (S) HEIGHT:67 inches (S) BMI:19.6ALLERGIES: No Known Drug AllergyCHIEF COMPLAINT: abdominal painDIAGNOSIS: Abdominal painLAB ORDERSOrder Description Priority Entered Acknowledged InitialedCBC w Diff STAT 18:02 01/20/2021 18:10 Jacque Montiel R.N. PA;CMP STAT 18:02 01/20/2021 18:10 Jacque Montiel R.N.;Lipase STAT 18:02 01/20/2021 18:10 Jacque Montiel R.N. PA;UA Reflex to UA 18:02 01/20/2021 18:04 Chnao,Culture Jacque Morley RN PA;Lactic Acid STAT 18:02 01/20/2021 18:10 Jacque Montiel R.N.;DIAGNOSTIC STUDY ORDERSOrder Description Priority Entered Acknowledged InitialedCT Abd PEL W/ IV STAT 18:04 01/20/2021 18:10 Dinesh,Contrast Only Jacque Guevara R.N.(Oxygen?(No)) PA;(IV?(Yes)) Reason for Study: RUQ pain, +h/o EtOH. Eval liver, GB, pancreasMEDICATION/IV/DRIP/FLUID ORDERSOrder Description Priority Entered Acknowledged InitialedNS IV : 1000 mL/hr 18:02 01/20/2021 18:29 Dinesh,(NOW x1) Jacque KWONG;Zofran IVP 4 mg 18:02 01/20/2021 18:29 Jacque Montiel R.N. 2 OrderSheet [facility] Emergency Department [address] [place] [address] Phone #: ext- [phone] 01/20/2021 17:02 Patient: YO MORALES Sex: M : 2000 Age: 20y PA;GENERAL ORDERSOrder Description Priority Entered Acknowledged InitialedNPO 18:02 01/20/2021 18:10 Jacque Montiel R.N.;Saline Lock 18:02 01/20/2021 18:22 Jacque Montiel R.N.;[Electronically signed by Ismael Montiel R.N. (19:00 01/20/2021)][Electronically signed by Jacque Rodriguez (19:01 01/20/2021)][Electronically locked by Ismael Montiel R.N. (19:00 01/20/2021)] Name Value Range Interpretation Code Description Data Sonam rce(s) Supporting Document(s) ID Date Data Source [id number] 01/20/2021 05:11:00 PM EDT [place] [address] Medication Reconciliation Report [facility] Emergency Department [address] [place] [address] Phone #: ext- [phone] 01/20/2021 17:02 Patient: YO MORALES Sex: M : 2000 Age: 20yWeight: 56.6 kgHeight/Length: 67 in.BMI: 19.6ALLERGIES: No Known Drug AllergyThe patient's Home Medications are listed below:NONE.The source(s) of the original Home Medication information:Not obtained.The following Medications were given to the patient in the Emergency Department:NS [IV] IV Fluids bolus 0, then 1500 mL/hr, administered: 18:28 01/20/2021Zofran [IVP] IVP 4 mg, administered: 18:29 01/20/2021The following Medications were prescribed to the patient:None. Name Value Range Interpretation Code Description Data Sonam rce(s) Supporting Document(s) ID Date Data Source [id number] 01/20/2021 05:11:00 PM EDT [facility] 1 Medication Administration Record [facility] Emergency Department [address] [place] [address] Phone #: [phone]- [phone] 01/20/2021 17:02 Patient: YO MORALES Sex: M : 2000 Age: 20yWeight: 56.6 kgHeight/Length: 67 inBMI: 19.6ALLERGIES: No Known Drug Allergy Date/Time Medication Administered Medication OrderedStart NS [IV] NS IV : 1000 mL/hr (NOW x1)18:28 01/20/2021 Dose: IV FluidsSorbIsmael luke R.NHarris Rate: 1500 mL/hr over 40 minute(s)---- Dispensed: 1000 mL bagStop Site: #1 left AC18:48 01/20/2021Ismael ansari R.NHarrisGiven ZOFRAN [IVP] (ONDANSETRON HCL) Zofran IVP 4 mg18:29 01/20/2021 Dose: 4 mg IVPSIsmael ansari R.N. Site: #1 left AC Name Value Range Interpretation Code Description Data Sonam rce(s) Supporting Document(s) ID Date Data Source [id number] 01/20/2021 05:11:00 PM EDT [facility] 1 General Instructions [facility] Emergency Department [address] [place] [address] Phone #: ext- [phone] 01/20/2021 17:02 Patient: YO MORALES Sex: M : 2000 Age: 20yAcute right upper quadrant abdominal pain of unknown cause.INSTRUCTIONS(You have decided to leave against medical advise. Without completing your work up, we are unable todetermine if it is safe for you to go home. Based on your symptoms, you could have a condition that mayresult in if it is not diagnosed and treated. If at any point in time, you change your mind and want toreturn for further evaluation, please do so.).Warnings: Further evaluation is necessary. It is very important to follow up with a healthcare provider.GENERAL WARNINGS: Return or contact your physician immediately if your condition worsens orchanges unexpectedly, if not improving as expected, or if other problems arise. SPECIFICALLY, return ifyou develop fever, vomiting, the inability to keep fluids down, blood in vomitus or blood in diarrhea; or ifthere is no improvement in the pain.Your Current Medications: .No home medication.Follow-up:Follow up with your healthcare provider tomorrow. Call for an appointment. Reason for referral: evaluationand treatment. Summary of care provided to patient via paper.Understanding of the discharge instructions verbalized by patient.AMA warnings: Time of assessment: 18:46 01/20/2021. Oriented to person, place, and time. Givesappropriate answers and rational explanation of refusal of care. No indication for involuntary commitmentis present, signs of psychosis, auditory hallucinations, delusional thinking or suicidal ideations. No slurredspeech, tangential thinking, visual hallucinations or homicidal ideations. Speaks coherently. Abstractthinking intact.Clinical Impression: the patient has the capacity to make decisions regarding the medical care offered.Relevant issues reviewed and discussed with the patient. Aware of suspected diagnosis suggested byscreening exam. The suspected diagnosis, based upon the initiated medical screening exam, is Rightupper abd pain (possible pancreatitis, hepatitis, gall bladder problems) and has been discussed with thepatient. Acknowledges understanding of the reasons for recommendations regarding medical treatmentand medical tests. The recommended medical care being refused is labs and CT scan (imaging) and hasbeen discussed with the patient. The risks of refusing recommended care that were disclosed andacknowledged are ; the risks of refusing recommended care that were disclosed are loss of currentlifestyle. Alternatives for the patient's care that were offered yet not feasible include transfer; alternatives 2 General Instructions [facility] Emergency Department [address] [place] [address] Phone #: ext- [phone] 01/20/2021 17:02 Patient: YO MORALES Sex: M : 2000 Age: 20yfor the patient's care that were offered yet declined include evaluation by another physician. Dischargeinstructions were provided to the patient.REFUSAL OF CARE STATEMENT (patient to review and sign in discharge instructions):I have read this paragraph. I understand that a doctor at this hospital wants to give me certain medicalcare. The doctor explained that care to me, and I understand what that care is. The doctor also explainedto me what could happen to me if I leave here without having that care, and I understand what he said. Iwant to leave this hospital without receiving the recommended care. I know that I am welcome to return [facility] at any time to receive the recommended care or any other care that I may need at any time,regardless of my ability to pay for such care. ADDITIONAL INFORMATIONUnknown Causes of Abdominal Pain (Male)Based on your visit today, the exact cause of your abdominal pain is not clear. Your exam and testsdon't suggest a dangerous cause at this time. However, the signs of a serious problem may takemore time to appear. Although your evaluation was reassuring today, sometimes early in the courseof many conditions, exam and lab tests can appear normal. Therefore, it is important for you to watchfor any new symptoms or worsening of your condition.It may not be obvious what caused your symptoms. Pay attention to things that do seem to makeyour symptoms worse or better and discuss this with your doctor when you follow up.The evaluation of abdominal pain in the emergency department may only require an exam by thedoctor or it may include blood, urine or imaging studies, depending on many factors. Sometimesexams and tests can identify a cause but in many cases, a clear cause is not found. Further testing atfollow up visits may help to suggest a clear diagnosis.Home care Rest as much as you can until your next exam. Try to avoid any medicines (unless otherwise directed by your doctor), foods, activities, or other factors that may have contributed to your symptoms. Try to eat foods that you know that you have tolerated well in the past. Certain diets may be recommended for some conditions that cause abdominal pain. However, since the cause of your symptoms may not be clear, discuss your diet more with your healthcare provider or specialist for further recommendations. If you have diarrhea, it may help to avoid dairy (lactose) for the time being. A low fat, low fiber diet can also help. Eating several small meals per day as opposed to 2 or 3 larger meals may help. 3 General Instructions [facility] Emergency Department [address] [place] [address] Phone #: ext- [phone] 01/20/2021 17:02 Patient: YO MORALES Sex: M : 2000 Age: 20y Avoid dehydration. Make sure to drink plenty of water. Other options include broth, soup, gelatin, sports drinks, or other clear liquids. Watch closely for anything that may make your symptoms worse or better. Pay close attention to symptoms below that may mean your condition is getting worse.Follow-up careFollow up with your healthcare provider if your symptoms are not improving, or as advised. In somecases, you may need more testing.When to seek medical adviceCall your healthcare provider right away if any of these occur: Pain is becoming worse You are unable to take your medicines or can't keep water down due to excessive vomiting Swelling of the abdomen Fever of 100.4F (38C) or higher, or as directed by your healthcare provider Blood in vomit or bowel movements (dark red or black color) Jaundice (yellow color of eyes and skin) New onset of weakness, dizziness or fainting New onset of chest, arm, back, neck or jaw pain [phone] [employer]. [address] [place] [address], [place] [address]. All rights reserved. This information is not intended as asubstitute for professional medical care. Always follow your healthcare professional's instructions. You have been given the following additional information: Unknown Causes of Abdominal Pain (Male)(Electronically signed by ELENITA Justice 01/20/2021 19:01) Name Value Range Interpretation Code Description Data Sonam rce(s) Supporting Document(s) ID Date Data Source [id number] 01/20/2021 05:11:00 PM EDT [facility] 1 Clinical Report - Nurses [facility] Emergency Department [address] [place] [address] Phone #: ext- [phone] 01/20/2021 17:02 Patient: YO MORALES Sex: M : 2000 Age: 20yTRIAGEArrived by private vehicle. Historian: patient.Acuity: LEVEL 3.Chief Complaint: ABDOMINAL PAIN and DIARRHEA.Alert. No acute distress.This started last night. ( PT reports last night he began having right sided abdominal pain and milddiarrhea. He had a few beers this morning and last night.). 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 SEPSIS SCREEN NEGATIVE. No suspected or confirmedsigns of infection present.RISSA COMA SCORE: 15- eyes open- spontaneous (4); best verbal response- oriented (5); bestmotor response- obeys commands (6). --17:10 01/20/21 Dorie Owen R.N.17:04 01/20/21. BP: 131/87. HR: 73. RR: 16. O2 satu ration: 100%. Temp: 98.3 F. Pain level now 11/27.--17:10 01/20/21 Dorie Owen R.N.Weight: 56.6 kg stated. Height/Length: 67 inches Per Patient. BMI: 19.6. --17:08 01/20/21 Dorie Owen R.N.MedicationsNone. --17:11 01/20/21 Dorie Owen R.N.AllergiesNo Known Drug Allergy. --17:11 01/20/21 Dorie Owen R.N.PROBLEMS:no known problems.ADDITIONAL SURGERIES:no known surgeries.HistoryPAST MEDICAL HX: Immunizations: up-to-date.SOCIAL HX: Never smoker. Heavy alcohol use; consumes 12-pack of beer a week. No drug use. No 2 Clinical Report - Nurses [facility] Emergency Department [address] [place] [address] Phone #: ext- [phone] 01/20/2021 17:02 Patient: YO MORALES Sex: M : 2000 Age: 20y recent travel. No known contact with a sick individual. The patient was offered HIV testing but declined and hepatitis C testing but declined. The patient has not traveled outside the [place] Infectious disease exposure: The patient was not exposed to C-diff, MRSA, VRE, CRE or Coronavirus. SELF HARM ASSESSMENT: Self harm assessment was performed. The patient answered "no" to the question(s) "Have you recently felt down, depressed, or hopeless?", "Do you have thoughts of harming or killing yourself?", "Do you have a plan for harming or killing yourself?", "Have you recently had thoughts about harming or killing others?", "Do you have any dangerous items in your possession?", "Have you noticed less interest or pleasure in doing things?", "Are you here because you tried to hurt yourself?" and "Have you ever tried to hurt yourself before today?". ABUSE ASSESSMENT: No report of abuse. NUTRITIONAL RISK ASSESSMENT: The nutritional risk assessment revealed no deficiencies. FUNCTIONAL ASSESSMENT: Functional assessment: no impairments noted. LEARNING NEEDS ASSESSMENT: The learning needs assessment revealed no barriers. FALL RISK ASSESSMENT: Fall risk assessment completed. No risk factors identified. SKIN INTEGRITY ASSESSMENT: Skin integrity risk assessment completed. No skin integrity risk identified. --17:10 01/20/21 Dorie Owen R.N. FAMILY HX: Negative - denies family medical history. --18:36 01/20/21 ELENITA Justice. Interventions Identification band on patient. To treatment room. --17:10 01/20/21 Dorie Owen R.N.PHYSICAL [id number] 01/20/21. Ambulatory to room. Patient gowned.GENERAL / NEURO / PSYCH: Alert. Oriented X 4. Appears in no acute distress.HEENT: Mucous membranes are pink.RESPIRATORY: Respirations not labored. Breath sounds within normal limits.CVS: Capillary refill less than 2 seconds.GI / : Abdomen soft and nontender. Bowel sounds within normal limits.SKIN: Skin is warm and dry. --17:13 01/20/21 Ismael Montiel R.N.NURSING PROGRESS NOTES17:13 01/20/21. Reassurance given. Two patient identifiers checked. Call light placed in reach. Bedplaced in lowest position. Brakes of bed on. Patient ready for evaluation- PA notified. --17:13 01/20/21Ismael Montiel R.N. 18:21 01/20/2021 Site #1 started via IV in the left antecubital space with an 20g angiocath, with aseptic 3 Clinical Report - Nurses [facility] Emergency Department [address] [place] [address] Phone #: [phone]- [phone] 01/20/2021 17:02 Patient: YO MORALES Sex: M : 2000 Age: 20y technique and good blood return; one attempt. Blood drawn: rainbow set. Labeled in the presence of the patient and sent to the lab. Saline lock flushed with 10 mL saline. --18:21 01/20/21 Ismael Montiel R.N. 18:28 01/20/2021 Started bag #1 1000 mL IV Fluids NS; at 1500 mL/hr over 40 minute(s) via site #1 via IV pump. Allergies verified and confirmed 5 rights. IV patency established. IV site checked: no pain, redness, or swelling. IV flushed thoroughly pre- and post-medication administration. Information reviewed with patient including reason for taking this medication, signs of allergic reaction and precautions. Verbalizes understanding. --18:29 01/20/21 Ismael Montiel R.N. 18:29 01/20/2021 Zofran (Ondansetron HCl) IVP 4 mg given over 2 minute(s) via site #1. Allergies verified and confirmed 5 rights. IV patency established. IV site checked: no pain, redness, or swelling. IV flushed thoroughly pre- and post-medication administration. IVP given by RN. Information reviewed with patient including reason for taking this medication, signs of allergic reaction and precautions. Verbalizes understanding. --18:29 01/20/21 Ismael Montiel R.N. 18:48 01/20/2021 IV Fluids NS via IV site #1 Discontinued. Total amount infused: 100 mL. --18:58 01/20/21 Ismael Montiel R.N.DISPOSITION / DISCHARGE 18:49 01/20/2021 Site #1 removed upon discharge. Catheter intact. Bandage applied. --18:59 01/20/21 Ismael Montiel R.N. 18:53 01/20/21. Departure time: 18:58 01/20/2021. The patient left the Emergency Department against medical advice and without completion of treatment; patient was unaccompanied. The patient appears to be alert, oriented x4, coherent and in no acute distress. The patient notified staff prior to leaving the department and stated is leaving due to personal reasons. Notified the charge nurse of patient departure. Prior to leaving, he was advised to stay for completion of treatment and return if needed. He was informed of the risks of leaving and verbalized understanding of these risks. Patient signed form prior to leaving. He left the Emergency Department ambulatory and via private vehicle. --18:58 01/20/21 Ismael Montiel R.N. 18:49 01/20/21. BP: deferred. HR: deferred. RR: deferred. O2 saturation: deferred. Temp: deferred. Pain level now: 0/10. --19:00 01/20/21 Ismael Montiel R.N.Locked/Released at 01/20/2021 19:00 by Ismael Montiel R.N. Name Value Range Interpretation Code Description Data Sonam rce(s) Supporting Document(s) ID Date Data Source [id number] 01/20/2021 05:11:00 PM EDT [facility] 1 Clinical Report - Physicians/Mid Levels [facility] Emergency Department [address] [place] [address] Phone #: ext- [phone] 01/20/2021 17:02 Patient: YO MORALES Sex: M : 2000 Age: 20y Time Seen: 17:24 01/20/2021. Arrived- By private vehicle. Historian- patient. Disposition decision: 18:45 01/20/2021.HISTORY OF PRESENT ILLNESS Chief Complaint: ABDOMINAL PAIN. It is described as burning. No radiation. It is described as located in the right upper quadrant. This started last night and is still present. It was abrupt in onset and has been waxing/waning. At its maximum, severity described as 8 / 10. When seen in the E.D., severity described as 6 / 10. Modifying factors- (worsened by EtOH). Not worsened by deep breaths or food. Not relieved by anything. The patient has had nausea. No loss of appetite, vomiting or diarrhea. No additional abdominal pain. (20yo male, no significant PMH, presents to the ED c/o RUQ pain since last PM. He had similar symptoms last week but then resolved after a day without definitive intervention. He thinks EtOH may make symptoms worse. He states that when he drinks, he usually does it for 2-3 days and consumes 20 beers. He drank one beer last PM and 4 this Am. Eating does not make pain worse. Last oral intake 1400 todya (soup). He denies urinary complaints however he has gone to the bathroom a number of times since arriving to the ED. He took some tums without improvement in symptoms.). No recent travel. Similar symptoms previously. None. Recent medical care: Not recently seen/assessed.REVIEW OF SYSTEMSLast bowel movement- today. No chills, fatigue, fever, double vision or ear pain. No nasal congestion,runny nose, sore throat, chest pain or cough. No difficulty breathing, diarrhea, nausea, vomiting or urinaryproblems. No back pain, skin rash or headache. The patient has had black stools.PAST HISTORYProblems:no known problems. Additional Surgeries: no known surgeries. Medications: None. Allergies: No Known Drug Allergy.SOCIAL HISTORYNever smoker. Regular alcohol use; consumes 12-pack of beer a week. No drug use. 2 Clinical Report - Physicians/[facility] Emergency Department [address] [place] [address] Phone #: ext- [phone] 01/20/2021 17:02 Patient: YO MORALES Sex: M : 2000 Age: 20yFAMILY HISTORYNegative - denies family medical history.ADDITIONAL NOTESThe nursing notes have been reviewed with agreement regarding the chief complaint, HPI, ROS, PMH andpatient medications and allergies.PHYSICAL EXAMVital Signs: 01/20/2021 17:04 BP: 131/87. MAP: 101. HR: 73. RR: 16. O2 saturation: 100%. Temp: 98.3F. Have been reviewed and appear to be correct. Hypertensive. Heart rate normal. Respiratory ratenormal. Temperature normal. Oxygen saturation normal.Appearance: Alert. Oriented X3. No acute distress.Eyes: Pupils equal, round and reactive to light. Eyes normal inspection.ENT: Ears normal. Nose normal. Pharynx normal.Neck: Normal inspection.CVS: Normal heart rate and rhythm. Heart sounds normal.Respiratory: No respiratory distress. Breath sounds normal. Chest nontender.Abdomen: Soft. Mild tenderness in the right upper quadrant. No guarding or rebound tenderness.Bowel sounds normal. No organomegaly. No mass.Back: Normal inspection.Skin: Skin warm and dry. Normal skin color. No rash.Extremities: Extremities exhibit normal ROM. No lower extremity edema.Neuro: Oriented X 3.LABS, X-RAYS, AND EKGLaboratory Tests: Laboratory tests have been ordered, with results reviewed and considered in themedical decision making process. CBC w Diff: (NILSON: 01/20/2021 18:20) ( MsgRcvd 01/20/2021 18:46) Final results Test Result Flag Units (Reference) CBC W/AUTOMATED DIFF COMPLETE BLOOD COUNT WBC 6.1 10/uL (4.2 - 11.0) RBC 4.79 10/uL (4.50 - 6.30) HEMOGLOBIN 15.4 g/dL (14.0 - 16.0) HEMATOCRIT 44.3 % (41.0 - 51.0) MCV 92.5 fL (80.0 - 94.0) MCH 32.2 pg (27.0 - 34.0) MCHC 34.8 g/dL (31.0 - 36.0) RDW 11.9 % (11.5 - 14.8) PLATELETS 239 10/uL (150 - 450) MPV 10.4 fL (7.4 - 10.4) NEUT 57.5 % (37.0 - 80.0) LYMPH 30.2 % (25.0 - 40.0) MONO 7.9 % (3.0 - 8.0) EOS 2.5 % (0.0 - 7.0) BASO 1.6 % (0.0 - 2.0) %IG 0.3 H % (0.0 - 0.0) %NRBC 0.0 % (0.0 - 0.0) 3 Clinical Report - Physicians/Mid Levels [facility] Emergency Department [address] [place] [address] Phone #: ext- [phone] 01/20/2021 17:02 Patient: YO MORALES Sex: M : 2000 Age: 20y #NEUT 3.50 10/uL (2.00 - 6.90) #LYMPH 1.84 10/uL (0.60 - 3.40) #MONO 0.48 10/uL (0.00 - 0.90) #EOS 0.15 10/uL (0.00 - 0.70) #BASO 0.10 10/uL (0.00 - 0.20) #IG 0.02 10/uL (0.00 - 0.10) #NRBC 0.00 10/uL (0.00 - 0.00) MANUAL DIFF NOT INDICATED RBC MORPH NOT INDICATED UA RE FLEX TO UA CULTURE: (NILSON: 01/20/2021 18:00) ( Mscvd 01/20/2021 18:45) Final results Test Result Flag Units (Reference) UA REFLEX TO UA CULTURE URINALYSIS SOURCE R COLOR yellow (NORMAL: Yello CLARITY clear (NORMAL: Clear SPEC GRAVITY 1.010 (1.001 - 1.030 pH 7 (5 - 9) GLUCOSE NORM (NORMAL: Negat BILIRUBIN NEG (NORMAL: Negat KETONE NEG (NORMAL: Negat PROTEIN NEG (NORMAL: Negat NITRITE NEG (NORMAL: Negat BLOOD NEG (NORMAL: Negat LEUK EST NEG (NORMAL: Negat UROBILINOGEN NOR (less than 1.0 MICROSCOPIC Not Indicate Lactic Acid: (NILSON: 01/20/2021 18:20) ( MsgRcvd 01/20/2021 18:44) Final results Test Result Flag Units (Reference) LACTIC ACID 2.1 MMOL/L (0.2 - 2.2).PROGRESS AND PROCEDURESCourse of Care: Labs and imaging ordered to further evaluate the right upper quad pain. Current DDXpancreatitis, hepatitis, and GB pathology. Fluids and zofran given. 18:44 01/20/21. Pt currently stating all of his symptoms have resolved and he would like to leave without having any of the testing (labs/imaging). Prolonged period of time spent attempting to scholarship counselor and persuade the pt to stay for evaluation as his symptoms could be secondary to pancreatitis, GB pathology, hepatitis, alcoholism and could result in . He states he understands but would still like to cancel any testing that has not yet been done. He is currently asymptomatic at this time. Only intervention thus far was IVF and zofran. No pain medications given thus far. He was instructed to return to the ER for any worsening or concerning symptoms otherwise follow up with PCP in 1-2 days for recheck. Disposition: Discharged home. Discharge decision based on the following: patient's condition is stable; patient's condition is improved; patient is ambulatory; patient's pain is controlled; patient's exam is improved; no seriously abnormal test results; improving condition on repeat evaluation; social support is adequate; transportation is available; 4 Clinical Report - Physicians/Mid Levels [facility] Emergency Department [address] [place] [address] Phone #: ext- [phone] 01/20/2021 17:02 [id number] Sex: M : 2000 Age: 20y follow-up is available; clinical impression is consistent with outpatient treatment.CLINICAL IMPRESSION Acute right upper quadrant abdominal pain of unknown cause.INSTRUCTIONS (You have decided to leave against medical advise. Without completing your work up, we are unable to determine if it is safe for you to go home. Based on your symptoms, you could have a condition that may result in if it is not diagnosed and treated. If at any point in time, you change your mind and want to return for further evaluation, please do so.). Warnings: Further evaluation is necessary. It is very important to follow up with a healthcare provider. GENERAL WARNINGS: Return or contact your physician immediately if your condition worsens or changes unexpectedly, if not improving as expected, or if other problems arise. SPECIFICALLY, return if you develop fever, vomiting, the inability to keep fluids down, blood in vomitus or blood in diarrhea; or if there is no improvement in the pain. Your Current Medications: . No home medication. Follow-up: Follow up with your healthcare provider tomorrow. Call for an appointment. Reason for referral: evaluation and treatment. Summary of care provided to patient via paper. Understanding of the discharge instructions verbalized by patient. AMA warnings: Time of assessment: 18:46 01/20/2021. Oriented to person, place, and time. Gives appropriate answers and rational explanation of refusal of care. No indication for involuntary commitment is present, signs of psychosis, auditory hallucinations, delusional thinking or suicidal ideations. No slurred speech, tangential thinking, visual hallucinations or homicidal ideations. Speaks coherently. Abstract thinking intact. Clinical Impression: the patient has the capacity to make decisions regarding the medical care offered. Relevant issues reviewed and discussed with the patient. Aware of suspected diagnosis suggested by screening exam. The suspected diagnosis, based upon the initiated medical screening exam, is Right upper abd pain (possible pancreatitis, hepatitis, gall bladder problems) and has been discussed with the patient. Acknowledges understanding of the reasons for recommendations regarding medical treatment and medical tests. The recommended medical care being refused is labs and CT scan (imaging) and has been discussed with the patient. The risks of refusing recommended care that were disclosed and acknowledged are ; the risks of refusing recommended care that were disclosed are loss of current lifestyle. Alternatives for the patient's care that were offered yet not feasible include transfer; alternatives 5 Clinical Report - Physicians/Mid Levels [facility] Emergency Department [address] [place] [address] Phone #: ext- [phone] 01/20/2021 17:02 Patient: YO MORALES Sex: M : 2000 Age: 20y for the patient's care that were offered yet declined include evaluation by another physician. Discharge instructions were provided to the patient. REFUSAL OF CARE STATEMENT (patient to review and sign in discharge instructions): I have read this paragraph. I understand that a doctor at this hospital wants to give me certain medical care. The doctor explained that care to me, and I understand what that care is. The doctor also explained to me what could happen to me if I leave here without having that care, and I understand what he said. I want to leave this [facility] without receiving the recommended care. I know that I am welcome to return to this [facility] at any time to receive the recommended care or any other care that I may need at any time, regardless of my ability to pay for such care.(Electronically signed by ELENITA Justice 01/20/2021 19:01) Name Value Range Interpretation Code Description Data Sonam rce(s) Supporting Document(s) ID Date Data Source [id number] 01/20/2021 06:46:00 PM EDT [facility] Name Value Range Interpretation Code Description Data [facility] rce(s) Supporting Document(s) CBC W/AUTOMATED DIFF [facility] COMPLETE BLOOD COUNT Leukocytes [#/volume] in Blood by Automated count 6.1 10^3/uL 4.2 - 1 1.0 [facility] Erythrocytes [#/volume] in Blood by Automated count 4.79 10^6/uL 4. 50 - 6.30 [facility] Hemoglobin [Mass/volume] in Blood 15.4 g/dL 14.0 - 16.0 [facility] Hematocrit [Volume Fraction] of Blood by Automated count 44.3 % 4 1.0 - 51.0 [facility] Erythrocyte mean corpuscular volume [Entitic volume] by Auto mated count 92.5 fL 80.0 - 94.0 [facility] Erythrocyte mean corpuscular hemoglobin [Entitic mass] by Automated count 32.2 pg 27.0 - 34.0 [facility] Erythrocyte mean corpuscular hemoglobin concentration [Mass/volume] by Automated count 34.8 g/dL 31.0 - 36.0 [facility] Erythrocyte distribution width [Ratio] by Automated count 11.9 % 11.5 - 14.8 [facility] Platelets [#/volume] in Blood by Automated count 239 10^3/uL 150 - 45 0 [facility] Platelet mean volume [Entitic volume] in Blood by Automated count 10.4 fL 7.4 - 10.4 [facility] Neutrophils/100 leukocytes in Blood by Automated count 57.5 % 37. 0 - 80.0 [facility] Lymphocytes/100 leukocytes in Blood by Manual count 30.2 % 25.0 - 40.0 [facility] Monocytes/100 leukocytes in Blood by Automated count 7.9 % 3.0 - 8.0 [facility] Eosinophils/100 leukocytes in Blood by Automated count 2.5 % 0.0 - 7.0 [facility] Basophils/100 leukocytes in Blood by Automated count 1.6 % 0.0 - 2.0 [facility] %IG 0.3 % 0.0 - 0.0 H [facility] %NRBC 0.0 % 0.0 - 0.0 [facility] Neutrophils [#/volume] in Blood by Automated count 3.50 10^3/uL 2.00 - 6.90 [facility] Lymphocytes [#/volume] in Blood by Automated count 1.84 10^3/uL 0.60 - 3.40 [facility] Monocytes [#/volume] in Blood by Automated count 0.48 10^3/uL 0.00 - 0.90 [facility] Eosinophils [#/volume] in Blood by Automated count 0.15 10^3/uL 0.00 - 0.70 [facility] Basophils [#/volume] in Blood by Automated count 0.10 10^3/uL 0.00 - 0.20 [facility] #IG 0.02 10^3/uL 0.00 - 0.10 [facility] #NRBC 0.00 10^3/uL 0.00 - 0.00 [facility] MANUAL DIFF NOT INDICATED [facility] RBC MORPH NOT INDICATED [facility] ID Date Data Source [id number] 01/20/2021 06:44:00 PM EDT [facility] Name Value Range Interpretation Code Description Data Sonam rce(s) Supporting Document(s) Lactate [Moles/volume] in Serum or Plasma 2.1 MMOL/L 0.2 - 2.2 [facility] ID Date Data Source [id number] 01/20/2021 06:45:00 PM EDT [facility] Name Value Range Interpretation Code Description Data Sonam rce(s) Supporting Document(s) UA REFLEX TO UA CULTURE [facility] URINALYSIS SOURCE R [facility] COLOR yellow NORMAL: Yellow [facility] CLARITY clear NORMAL: Clear [facility] Specific gravity of Urine by Test strip 1.010 1.001 - 1.030 [facility] 7 5 - [facility] Gl[facility] [Mass/volume] in Urine by Test strip NORM NORMAL: Negat [facility] Bilirubin.total [Presence] in Urine by Test strip NEG NORMAL: Negative [facility] Ketones [Presence] in Urine by Test strip NEG NORMAL: Negative [facility] Protein [Mass/volume] in Urine by Test strip [facility] [Presence] in Urine by Test strip NEG NORMAL: Negative [facility] BLOOD NEG NORMAL: Negative [facility] Leukocyte esterase [Presence] in Urine by Test strip NEG NAHOMY L: Negative [facility] Urobilinogen [Mass/volume] in Urine by Test strip NOR less nahid n 1.0 mg/dL [facility] MICROSCOPIC Not Indicate [facility] ID Date Data Source [id number] 03/25/2020 11:20:00 AM EST [facility] Name Value Range Interpretation Code Description Data Sonam rce(s) Supporting Document(s) SARS coronavirus 2 RNA [facility] This lab was ordered by [employer] and rep orted by [facility]. Procedure Social History No Information
[2021-02-28 17:09] LABS: ALBUMIN 4.8 GM/DL (3.2-5.2); ALT/SGPT 35 U/L (12-78); BILIRUBIN,DIRECT 0.1 MG/DL (0.0-0.2); BILIRUBIN,TOTAL 0.5 MG/DL (0.2-1.0); BLOOD UREA NITROGEN 14 MG/DL (7-18); CALCIUM LEVEL 10.2 MG/DL (8.5-10.1); CARBON DIOXIDE LEVEL 25 MEQ/L (21-32); CHLORIDE LEVEL 106 MEQ/L (98-107); CREATININE FOR GFR 0.91 MG/DL (0.70-1.30); GLOMERULAR FILTRATION RATE > 60.0 (>60); GLUCOSE, FASTING 100 MG/DL (70-100); LIPASE 59 U/L (73-393); POTASSIUM SERUM 3.5 MEQ/L (3.5-5.1); SODIUM LEVEL 139 MEQ/L (136-145); TOTAL PROTEIN 8.3 GM/DL (6.4-8.2)
[2021-02-28 17:57] VITALS: BP 147/74
== END 2021-02-28 17:59 | disposition home or self-care (01) ==
LOC: M ED 15:38
DX: K59.00 Constipation, unspecified (principal)

== ENCOUNTER → 2021-06-06 | Outpatient (CLI) | payer OTHER ==
[2021-06-06 08:13] LABS: BASO # 0.1 10^3/uL (0.0-0.2); BASO % 1.6 % (0.0-1.0); EOS # 0.1 10^3/uL (0.0-0.5); EOS % 2.5 % (0.0-3.0); HEMATOCRIT 45.9 % (42.0-52.0); LYMPH # 1.9 10^3/uL (1.5-5.0); LYMPH % 33.3 % (24.0-44.0); MEAN CORPUSCULAR HEMOGLOBIN 31.2 pg (27.0-33.0); MEAN CORPUSCULAR HGB CONC 32.7 g/dl (32.0-36.5); MEAN CORPUSCULAR VOLUME 95.4 fl (80.0-96.0); MONO # 0.5 10^3/uL (0.0-0.8); MONO % 8.8 % (2.0-8.0); NEUTROPHILS % 53.6 % (36.0-66.0); PLATELET COUNT, AUTOMATED 238 10^3/uL (150-450); RED BLOOD COUNT 4.81 10^6/uL (4.30-6.10); WHITE BLOOD COUNT 5.6 10^3/uL (4.0-10.0)
[2021-06-06 08:45] LABS: ALBUMIN 4.6 GM/DL (3.2-5.2); ALT/SGPT 29 U/L (12-78); BILIRUBIN,TOTAL 0.5 MG/DL (0.2-1.0); BLOOD UREA NITROGEN 9 MG/DL (7-18); CALCIUM LEVEL 9.7 MG/DL (8.5-10.1); CARBON DIOXIDE LEVEL 28 MEQ/L (21-32); CHLORIDE LEVEL 107 MEQ/L (98-107); GLOMERULAR FILTRATION RATE > 60.0 (>60); GLUCOSE, FASTING 88 MG/DL (70-100); POTASSIUM SERUM 5.2 MEQ/L (3.5-5.1); SODIUM LEVEL 140 MEQ/L (136-145); TOTAL PROTEIN 7.9 GM/DL (6.4-8.2)
== END ==
LOC: M RAD 06:48
PROVIDERS: ATTEND Student in an Organized Health Care Education/Training Program
DX: R10.11 Right upper quadrant pain (principal)